=== PATIENT | male | born 1975 ===

== ENCOUNTER 2025-02-09 11:25 | Day surgery (SDC) | payer BC ==
[2025-02-09] VITALS (28 sets, daily range): BP systolic 123–205; BP diastolic 80–168
[~2025-02-09] VITALS: Ht 177.8 cm; Wt 110.0 kg
[~2025-02-09 11:25] MED LIST: Crutch1 EACH MISC; POLTRIOPSO OD; Percocet 5-3251 EACH PO
[2025-02-09] MEDS ORDERED: ALLO100 PO (12:32)
[2025-02-09] MEDS ORDERED: Benicar Hct 401 EACH PO (12:34)
[2025-02-09] MEDS ORDERED: Midazolam HCl 1MG / ML 2ML Vial ONE ×2 (13:09→13:17)
--- NOTE | 2025-02-09 13:52 | NUR ---
02/09/25 1352 Uzma Barr CONFIRMED AND REVIEWED H&P, MEDCICATIONS, ALLERGIES, MEDICAL HISTORY, RESPIRATORY HISTORY, VITAL SIGNS, 3-LEAD EKG, CONSENTS, AND PHYSICIAN ORDERS. PATIENT CONFIRMS NPO STATUS AND AGREES WITH SCHEDULED PROCEDURE. MONITOR INTACT WITH CONTINUOUS PULSE OXIMETRY, CAPNOGRAPHY, 3-LEAD EKG, INTERMITTENT BP. SUPPLEMENTAL O2 TO BE TITRATED THROUGHOUT PROCEDURE TO MAINTAIN O2 SATURATION ABOVE 90%. PATIENT DETERMINED TO BE ASA APPROPRIATE FOR PROPOFOL SEDATION PRIOR TO START OF PROCEDURE BY DR. BARNARD
--- NOTE | 2025-02-09 14:15 | NUR ---
Patient up to Ambulate independently. Gait steady. Discharge instructions reviewed with patient. Patient verbalizes understanding. Copy given to patient to take home, WELL FAMILY. Patient States Post-Procedure ride home has been arranged. Discharged via wheelchair to private car for ride home. PT TOLERATING PO, REPORTS NO PAIN. REPORTS READY TO GO HOME. FAMILY BEEN TO BEDSIDE. DR BEEN TO BEDSIDE WHEN FAMILY PRESENT.
== END 2025-02-09 14:15 | disposition home or self-care (01) ==
LOC: ORSCMMR 11:25 → ORD 11:25 → ORSCMMR 11:26 → ORD 12:30
PROVIDERS: Family Medicine
PROC: 0DJD8ZZ Inspection of Lower Intestinal Tract, Via Natural or Artificial Opening Endoscopic (ICD-10-PCS; principal; 2025-02-09 12:30)
DX: Z12.11 Encounter for screening for malignant neoplasm of colon (principal); Z80.0 Family history of malignant neoplasm of digestive organs; Z83.719 Family history of colon polyps, unspecified; K57.30 Diverticulosis of large intestine without perforation or abscess without bleeding; K64.0 First degree hemorrhoids; Z72.0 Tobacco use; Z79.899 Other long term (current) drug therapy
CPT/HCPCS: J2250; J2704; J7120